=== PATIENT | female | born 1970 | race Caucasian/White ===

== ENCOUNTER → 2017-03-11 | Outpatient (CLI) | payer MEDICARE, MEDICAID ==
[~2017-03-11] MED LIST: AML5T PO; CEPH-507 PO; EZET10TA5 PO; LEVO75TA PO; LISI-596 PO; MIRT15TA PO; NF-LAM100T PO; NITR-68 PO; NORE-80 PO; NORG1TAB7 PO; NR-METANX PO; POLY17PO2 PO
--- NOTE | 2017-03-12 17:28 | Diagnostic Imaging Report ---
EXAM: DIG ADELA BILAT SCREEN W CAD The current study was also evaluated with a Computer Aided Detection (CAD) system. INDICATION: Screening. COMPARISON: Mammograms 03/16/2012, 05/17/2015. DENSITY: Scattered areas of fibroglandular density. FINDINGS: No significant change. Benign calcifications in the left breast are stable. No mass, calcification or architectural distortion suspicious for malignancy in either breast. IMPRESSION: No mammographic findings suspicious for malignancy. RECOMMENDATION: Routine screening mammography in one year. ACR BI-RADS Category 2: Benign findings. Result letter will be mailed to the patient. Note: At least 10% of breast cancer is not imaged by mammography. Dictated by: Dictated on workstation # [id number]
== END ==
LOC: RAD 14:05
PROVIDERS: ATTEND Family Medicine
DX: Z12.31 Encounter for screening mammogram for malignant neoplasm of breast (principal)